=== PATIENT | male | born 1995 | race Caucasian/White ===

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

== ENCOUNTER 2017-10-01 14:35 | Emergency (ER) | payer OTHER ==
[~2017-10-01] VITALS: Ht 182.9 cm; Wt 132.6 kg
[2017-10-01 14:42] VITALS: BP 124/77
[2017-10-01] MEDS ORDERED: ONDANSETRON 4 MG ODT PO ONE (16:50)
[2017-10-01] MEDS ORDERED: DICYCLOMINE HCL LIQUID 20 MG, ALUMINUM HYD/MAG/SIMETHICONE 30 ML, LIDOCAINE VISCOUS 2% ... PO ONE ×3 (17:45)
[2017-10-01 18:25] VITALS: BP 126/74
== END 2017-10-01 18:25 | disposition home or self-care (01) ==
LOC: MED 14:35
DX: K52.9 Noninfective gastroenteritis and colitis, unspecified (principal); K21.9 Gastro-esophageal reflux disease without esophagitis; R19.7 Diarrhea, unspecified; J45.909 Unspecified asthma, uncomplicated; Z79.899 Other long term (current) drug therapy
CPT/HCPCS: 90471; 90715; 99283; S0119

== ENCOUNTER 2017-11-05 06:34 | Emergency (ER) | payer OTHER ==
[~2017-11-05] VITALS: Ht 182.9 cm; Wt 127.9 kg
[2017-11-05 06:37] VITALS: BP 129/77
--- NOTE | 2017-11-05 06:37 | NUR ---
TO BED # 4 AMBULATORY.
--- NOTE | 2017-11-05 06:44 | NUR ---
PT TAKEN TO BED 2
--- NOTE | 2017-11-05 06:45 | NUR ---
CAME IN WITH C/O RT ARM PAIN, SINCE YESTERDAY WHEN HE WOKE UP NO TAUMA NOR INJURY.
--- NOTE | 2017-11-05 06:48 | NUR ---
Patient being evaluated by physician at bedside with orders and carried out.
--- NOTE | 2017-11-05 06:58 | NUR ---
PT TAKEN TO XRAY
--- NOTE | 2017-11-05 07:24 | NUR ---
APPLIED LARGE SLING TO PATIENTS RIGHT ARM, PMSC's ASSESSED AND WITHIN NORMAL LIMITS. PT. TOLERATED SPLINT WELL
[2017-11-05 07:40] VITALS: BP 133/74
== END 2017-11-05 07:45 | disposition home or self-care (01) ==
LOC: MED 06:34
DX: G56.91 Unspecified mononeuropathy of right upper limb (principal); J45.909 Unspecified asthma, uncomplicated; R03.0 Elevated blood-pressure reading, without diagnosis of hypertension; Z79.899 Other long term (current) drug therapy
CPT/HCPCS: 73060; 73090; 99284

== ENCOUNTER 2018-12-11 19:34 | Emergency (ER) | payer SELFPAY ==
[~2018-12-11] VITALS: Ht 185.4 cm; Wt 151.0 kg
[2018-12-11 19:45] VITALS: BP 130/89
--- NOTE | 2018-12-11 19:53 | NUR ---
PT AMBULATED TO BED #12
--- NOTE | 2018-12-11 20:11 | NUR ---
Dr. Mullins examining patient.
--- NOTE | 2018-12-11 20:12 | NUR ---
ERMD AT BEDSIDE.
--- NOTE | 2018-12-11 20:13 | NUR ---
23 Y/O MALE C/OINTERMINTENT LOWER ABDOMINAL PAIN X2 DAYS. PAIN RADIATES TO R RIB. +NAUSEA. DECREASED APPETITE AND INCREASED THRIST. PAIN DECREASES AFTER FOOD CONSUMPTION AND RETURNS WITHIN 30 MINS . ERMD MADE AWARE OF STATUS. PLACED ON MONITOR PAIN IS A6/10 ACUTE PAIN IN ABDOMEN RADIATING TO THE RIGHT SIDE. ABDOMEN HYPOACTIVE ON ALL FOUR QUADRANTS NON DISTENDED. NKA HX- ADHD
--- NOTE | 2018-12-11 20:55 | NUR ---
LAB AT BEDSIDE.
[2018-12-11 21:16] LABS: BASOPHILS % (AUTO) 0.3 % (0.0-2.0); EOSINOPHILS # (AUTO) 0.1 K/uL (0-0.4); EOSINOPHILS % (AUTO) 1.1 % (0.0-4.0); HEMATOCRIT 44.4 % (36-52); HEMOGLOBIN 14.5 g/dL (12.0-18.0); LYMPHOCYTES # (AUTO) 1.3 K/uL (2.0-11.5); LYMPHOCYTES % (AUTO) 11.1 % (20.5-51.1); MEAN CORPUSCULAR HEMOGLOBIN 28 pg (27-31); MEAN CORPUSCULAR HGB CONC 33 g/dL (33-37); MEAN CORPUSCULAR VOLUME 84.7 fL (80-94); MONOCYTES % (AUTO) 8.9 % (1.7-9.3); NEUTROPHILS % (AUTO) 78.6 % (42.2-75.2); PLATELET COUNT (AUTO) 254 K/uL (140-450); RED BLOOD CELL COUNT(AUTO) 5.24 MIL/uL (4.20-6.10); RED CELL DISTRIBUTION WIDTH 14.1 % (11.6-13.7); WHITE BLOOD COUNT (AUTO) 11.5 K/uL (4.8-10.8)
[2018-12-11 21:41] LABS: APPEARANCE,URINE CLEAR (CLEAR); BILIRUBIN,URINE NEGATIVE (NEGATIVE); BLOOD, URINE TRACE-I (NEGATIVE); COLOR,URINE YELLOW (YELLOW); LEUKOCYTE ESTERASE ,URINE NEGATIVE (NEGATIVE); NITRITE, URINE NEGATIVE (NEGATIVE); UGLUCOSE NEGATIVE (NEGATIVE)
[2018-12-11 21:48] LABS: ANION GAP 12.3 (8-16); CARBON DIOXIDE 30.3 mmol/L (21-32); CREATININE 1.8 mg/dL (0.7-1.3); POTASSIUM 3.6 mmol/L (3.5-5.1)
[2018-12-11 21:54] LABS: ALBUMIN 3.3 g/dL (3.4-5.0); TOTAL BILIRUBIN 0.7 mg/dL (0.0-1.0)
--- NOTE | 2018-12-11 22:14 | NUR ---
PT TAKEN TO CT
--- NOTE | 2018-12-11 22:39 | NUR ---
PT LAYING IN BED, FAMILY AT BEDSIDE, RR EVEN AND UNLABORED. VSS. PT REPORTS 2/10 INTERMITTENT LOWER ABD PAIN WITH INTERMITTENT RADIATION TO R FLANK. ALL NEEDS MET AT THIS TIME.
[2018-12-11] MEDS ORDERED: ONDANSETRON 4 MG/2 ML VIAL IVP ONE (23:25)
[2018-12-11] MEDS ORDERED: MORPHINE SULFATE 10 MG/ML VIAL IVP ONE (23:25)
--- NOTE | 2018-12-12 00:04 | NUR ---
Patient discharged with v/s stable. Written and verbal after care instructions given and explained. Patient verbalized understanding. Ambulatory with to home. All questions addressed prior to discharge. Advised to follow up with PMD.
[2018-12-12 00:05] VITALS: BP 139/88
== END 2018-12-12 00:04 | disposition home or self-care (01) ==
LOC: MED 19:34
DX: N17.9 Acute kidney failure, unspecified (principal); J45.909 Unspecified asthma, uncomplicated; R51 Headache; Z79.899 Other long term (current) drug therapy
CPT/HCPCS: 36415; 80053; 81003; 83690; 85025; 99284

== ENCOUNTER 2021-03-09 19:40 | Emergency (ER) | payer OTHER ==
[~2021-03-09] VITALS: Ht 185.4 cm; Wt 154.2 kg
[~2021-03-09 19:40] MED LIST changes: +ALBU-118 IH; -ALBU-136 IH
[2021-03-09 19:46] VITALS: BP 148/84
--- NOTE | 2021-03-09 19:49 | NUR ---
to lobby a/w bed ambulatory
--- NOTE | 2021-03-09 20:30 | NUR ---
seen and examined by zhao
--- NOTE | 2021-03-09 20:45 | NUR ---
swab for oscar sent to lab
--- NOTE | 2021-03-09 21:30 | NUR ---
results back and noted by ERMD and for d/c
[2021-03-09 21:40] VITALS: BP 129/78
--- NOTE | 2021-03-09 21:40 | NUR ---
Patient discharged with v/s stable. Written and verbal after care instructions given and explained. Patient verbalized understanding. Ambulatory with steady gait. All questions addressed prior to discharge. Advised to follow up with PMD.
== END 2021-03-09 21:40 | disposition home or self-care (01) ==
LOC: MED 19:40
DX: J06.9 Acute upper respiratory infection, unspecified (principal); Z20.822 Contact with and (suspected) exposure to COVID-19; J45.909 Unspecified asthma, uncomplicated; E11.9 Type 2 diabetes mellitus without complications; Z79.899 Other long term (current) drug therapy
CPT/HCPCS: 71045; 87426; 99284; Q0092

== ENCOUNTER 2022-05-09 06:00 | Emergency (ER) | payer OTHER ==
[~2022-05-09] VITALS: Ht 185.4 cm; Wt 163.3 kg
[2022-05-09 06:02] VITALS: BP 132/76
--- NOTE | 2022-05-09 06:09 | NUR ---
Patient taken to bed 9.
--- NOTE | 2022-05-09 06:14 | NUR ---
Dr. Parnell examining patient.
[2022-05-09] MEDS ORDERED: NACL 0.9% 2,000 ML IV ONE (06:20)
--- NOTE | 2022-05-09 06:30 | NUR ---
Blood draw collected and sent to lab
[2022-05-09 07:42] VITALS: BP 114/81
[2022-05-09 07:45] LABS: EOSINOPHILS # (AUTO) 0.3 K/uL (0-0.4); LYMPHOCYTES # (AUTO) 0.9 K/uL (2.0-11.5); LYMPHOCYTES % (AUTO) 5.9 % (20.5-51.1); MONOCYTES # (AUTO) 0.8 K/uL (0.8-1.0); NEUTROPHILS # (AUTO) 13.4 K/uL (1.8-7.7); PLATELET COUNT (AUTO) 302 K/uL (140-450); WHITE BLOOD COUNT (AUTO) 15.4 K/uL (4.8-10.8)
[2022-05-09 07:47] LABS: BASOPHILS % (AUTO) 0.2 % (0.0-2.0); EOSINOPHILS % (AUTO) 1.6 % (0.0-4.0); HEMATOCRIT 50.1 % (36-52); HEMOGLOBIN 16.7 g/dL (12.0-18.0); MEAN CORPUSCULAR HEMOGLOBIN 28 pg (27-31); MEAN CORPUSCULAR HGB CONC 33 g/dL (33-37); MEAN CORPUSCULAR VOLUME 83.8 fL (80-94); MONOCYTES % (AUTO) 5.3 % (1.7-9.3); RED BLOOD CELL COUNT(AUTO) 5.97 MIL/uL (4.20-6.10); RED CELL DISTRIBUTION WIDTH 14.5 % (11.6-13.7)
[2022-05-09 07:52] LABS: ALBUMIN 3.6 g/dL (3.4-5.0); ANION GAP 16.2 (8-16); ASPARTATE AMINOTRANSFERASE 18 U/L (15-37); CARBON DIOXIDE 25.4 mmol/L (21-32); CHLORIDE 103 mmol/L (98-107); GFR ARICAN-AMERICAN 117 mL/min (>90); GLUCOSE 117 mg/dL (74-106); LIPASE 112 U/L (73-393); POTASSIUM 4.6 mmol/L (3.5-5.1); SODIUM SERUM 140 mmol/L (136-145); TOTAL BILIRUBIN 0.6 mg/dL (0.0-1.0); UREA NITROGEN, BLOOD 14 mg/dL (7-18)
[2022-05-09] MEDS ORDERED: DICYCLOMINE HCL LIQUID 20 MG, ALUMINUM HYD/MAG/SIMETHICONE 30 ML, LIDOCAINE VISCOUS 2% ... PO ONE ×3 (07:55)
[2022-05-09] MEDS ORDERED: ALUMINUM HYD/MAG/SIMETHICONE 30 ML UDC ONE (07:56)
[2022-05-09] MEDS ORDERED: DICYCLOMINE HCL LIQUID 10 MG/5 ML UDC ONE (07:57)
--- NOTE | 2022-05-09 09:40 | NUR ---
Pt DC TO HOME PER POV . PIV DC AND 1 RX GIVEN . VSS/NAD. PT VERBALIZED INSTRUCITONS AND UNDERSTANDING. ALL BELONGINGS TO [facility] PHONE AND [facility]ALLET SENT WITH PT.
--- NOTE | 2022-05-14 08:16 | NUR ---
CONFIRMED WITH NURSE, NS INFUSION END TIME IS 6874 05/09/22
== END 2022-05-09 09:40 | disposition home or self-care (01) ==
LOC: MED 06:00
DX: R11.2 Nausea with vomiting, unspecified (principal); J45.909 Unspecified asthma, uncomplicated; E11.9 Type 2 diabetes mellitus without complications; G47.30 Sleep apnea, unspecified; Z79.899 Other long term (current) drug therapy
CPT/HCPCS: 36415; 80053; 83690; 84484; 85025; 93005; 96360; 96361; 99284; J7030